=== PATIENT | male | born 1995 | race American Indian/Alaskan Native ===

== ENCOUNTER 2018-05-31 04:38 | Emergency (ER) | payer SELFPAY ==
[2018-05-31 04:47] VITALS: BP 125/82
--- NOTE | 2018-05-31 08:25 | Emergency Department Report ---
Chief Complaint: Urogenital-Male Stated Complaint: GENITAL DISCHARGE Time Seen by Provider: 05/31/18 08:04 - HPI History of Present Illness: This is a 23-year-old male here report that he has penile drainage that has been ongoing 2 days. some urinary burning but none today., abdominal pain, back pain or penile rash or lesion. Reports that he is having some white discharge. Patient does have unprotected sex. Denies any medical problems - ROS Review of Systems: Positive penile discharge and reports some urinary burning. Negative abdominal back pain. Negative fever or chills. Negative blood and urine and negative rash - Exam Vital Signs: Vital Signs 05/31/18 04:46 Temperature 98.3 F Pulse Rate 65 Respiratory 18 Rate Blood Pressure 125/82 O2 Sat by Pulse 99 Oximetry Physical Exam: This is a 23-year-old male well-nourished well-developed in no acute distress. Abdomen: Soft, Nontender to palpation quadrants. Negative CVA tenderness and normal bowel sounds MSE screening note: Focused history and physical exam performed. Due to findings the following was ordered: ED Medical Decision Making - Medical Decision Making This is a 23-year-old male here complaining STD symptoms and would like to be treated. Assessment/plan Male concern for STD without any diagnosis. Penile discharged-is a patient that he needs to go to [facility]. His vital signs are stable he is afebrile. Patient was given multiple resources to utilize to get STD check and treated. Patient was understanding in and he is nontoxic in appearance and nonemergent. Discharge home to follow up at multiple resources clinic given including free clinic to be tested. He voiced understanding I also informed him to let his partner know that he has penile discharge and here she will need to be checked and he agreed. ED Disposition for MSE Clinical Impression: Concern about STD in male without diagnosis Disposition: Z-07 MED SCREENING EXAM-LEFT Is pt being admited?: No Does the pt Need Aspirin: No Condition: Stable Instructions: Safe Sex (ED), Sexually Transmitted Diseases (ED) Additional Instructions: Follow-up with multiple resources given for STD clinic and to get checked for STD Let your partner have penile drainage and would need to be tested for STD Referrals: [facility] Dept[facility] [Outside] - 2-3 Days [facility] [Outside] - 2-3 Days
== END 2018-05-31 08:30 | disposition left against medical advice (07) ==
LOC: ED 04:38
DX: R36.9 Urethral discharge, unspecified (principal); Z20.2 Contact with and (suspected) exposure to infections with a predominantly sexual mode of transmission
CPT/HCPCS: 99281